=== PATIENT | female | born 1945 | race African-American/Black ===

== ENCOUNTER 2017-11-05 22:14 | Emergency (ER) | payer OTHER ==
[~2017-11-05] VITALS: Ht 177.8 cm; Wt 65.8 kg
[2017-11-05 23:05] LABS: Eosinophils # (auto) 0 uL; Hemoglobin 12.9 g/dL (12.2-16.2); Mean Corpuscular Hemoglobin 29.7 pg (28.0-32.0); Red Blood Cells 4.34 10^6/uL (4.0-5.20)
[2017-11-05 23:11] LABS: Basophils # (auto) 0 uL; Basophils % (auto) 0.2 % (0.0-2.0); Eosinophils % (auto) 0.1 % (0.0-7.0); Hematocrit 38.3 % (36.0-46.0); Lymphocytes % (auto) 6.6 % (10.0-50.0); Mean Corpuscular Hgb Conc. 33.7 g/dL (32.0-36.0); Mean Corpuscular Volume 88.1 fL (80.0-100.0); Monocytes % (auto) 6.3 % (0.0-12.0); Neutrophils # (auto) 13.3 uL; Neutrophils % (auto) 86.8 % (37.0-80.0); Nucleated Red Blood Cells % 0.1 %; Platelet Count (auto) 346 10^3/uL (140-450); White Blood Cell 15.4 10^3/uL (4.4-10.8)
[2017-11-05 23:13] LABS: Red Cell Distribution Width 21.3 % (11.8-14.3)
[2017-11-05 23:19] LABS: Albumin 1.4 g/dL (3.4-5.0); BUN/Creatinine Ratio 16.1; Potassium 3.6 mmol/L (3.5-5.1)
[2017-11-05 23:33] LABS: Bilirubin, Total 13.1 mg/dL (0.2-1.0); Total Protein 7.5 g/dL (6.4-8.2)
[2017-11-05 23:50] LABS: INR 1.62 (0.9-1.15); Partial Thromboplastin Time 45.7 sec (22.64-33.71); Prothrombin Time 17.7 sec (9.37-12.3)
[2017-11-06 01:09] LABS: Amylase 100 U/L (25-115); Lipase 254 U/L (73-393)
[2017-11-06 07:02] LABS: Urine Bacteria FEW /hpf (None Seen); Urine Blood TRACE /uL (Negative); Urine Mucus FEW (None Seen); Urine Specific Gravity 1.024 (1.001-1.035); Urine WBC 1 /hpf (0 - 5)
[2017-11-06 07:09] LABS: Alcohol, Urine < 3.0 mg/dL (0-5); Amphetamine Screen, Urine NEGATIVE (NEGATIVE); Barbiturate Scree,Urine NEGATIVE (NEGATIVE); Benzodiazephine Screen, Urine NEGATIVE (NEGATIVE); Cannabinoid Screen, Urine NEGATIVE (NEGATIVE); Cocaine Screen, Urine NEGATIVE (NEGATIVE); Opiate Scree,Urine NEGATIVE (NEGATIVE); Phencyclidine Screen, Urine NEGATIVE (NEGATIVE)
[2017-11-06] MEDS ORDERED: cefTRIAXone 1GM/10ml IVPUSH 10 ML IV ONE (07:30)
[2017-11-06 08:50] VITALS: BP 116/63
== END 2017-11-06 09:25 | disposition short-term general hospital (02) ==
LOC: ER 22:14
DX: R41.82 Altered mental status, unspecified (principal); D72.829 Elevated white blood cell count, unspecified; G93.41 Metabolic encephalopathy; K72.90 Hepatic failure, unspecified without coma; I10 Essential (primary) hypertension
CPT/HCPCS: 36415; 70450; 71045; 74176; 80053; 80307; 81001; 82140; 82150; 82962; 83690; 84484; 85025; 85610; 85730; 93005; 96374